=== PATIENT | male | born 1965 | race Caucasian/White ===

== ENCOUNTER 2022-04-29 07:12 | Emergency (ER) | payer SELFPAY ==
--- NOTE | ~2022-04-29 | XR_ITS ---
EXAMINATION: XR chest 2V DATE: 04/29/2022 07:39 INDICATION: Midline chest pain. TECHNIQUE: Frontal and lateral views of the chest were obtained. COMPARISON: None. 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 No pleural effusion or pneumothorax. The heart size is normal. IMPRESSION: 1. No acute cardiopulmonary disease. Reviewed, dictated and finalized at location A. [employer]
--- NOTE | 2022-04-29 07:15 | ECG_ITS ---
Measurements Intervals [place] Rate: 90 P: 51 NC: 136 QRS: 28 QRSD: 94 T: 53 QT: 343 QTc: 420 Interpretive Statements SINUS RHYTHM DELAYED PRECORDIAL R/S TRANSITION BASELINE ARTIFACT- I, AVL BORDERLINE ECG NO PREVIOUS ECG AVAILABLE FOR COMPARISON Electronically Signed On 04-29-2022 7:50:10 PROTOZOOLOGIST by Michele West D.O.
[2022-04-29 07:17] VITALS: BP 171/93; PULSE 95; RESP 16; TEMP 36.6; O2SAT 100
--- NOTE | 2022-04-29 07:43 | ED.GENADULT ---
HPI - General Adult General Chief complaint: Recheck/Abnormal Lab/Rx Stated complaint: high bp Time Seen by Provider: 04/29/22 07:14 History of Present Illness HPI narrative: 56-year-old male with no prior history of hypertension presenting to the emergency department for evaluation of intermittent chest pain and high blood pressure. Patient states that yesterday he went to check his blood pressure at a local drugstore and it was found to be elevated. Patient states he did have a short episode of chest pain yesterday without resolved now. Patient denies any current chest pain. Patient has no prior history of DC. Related Data Allergies Allergy/AdvReac Type Severity Reaction Status Date / Time No Known Allergies Allergy Verified 04/29/22 08:25 Review of Systems Review of Systems: CONSTITUTIONAL: Denies fever, chills, or sweats. EYES: Denies visual changes, redness, or discharge. ENT: Denies rhinorrhea, congestion, sore throat, or otalgia. CARDIOVASCULAR: See HPI RESPIRATORY: Denies cough or dyspnea. GASTROINTESTINAL: Denies abdominal pain, nausea, vomiting, or diarrhea. GENITOURINARY: Denies dysuria or hematuria. SKIN: Denies rash or itching. MUSCULOSKELETAL: Denies back pain, joint pain, or myalgia. NEUROLOGIC: Denies headache, numbness, or weakness. Exam Narrative: APPEARANCE: Well appearing, no pain, no distress, well-nourished. HEAD: normocephalic, atraumatic. EYES: PERRLA/EOMI, conjunctivae clear. NOSE: Normal no drainage NECK: Supple. No adenopathy, no masses. RESPIRATORY: Airway patent, respirations nonlabored. Clear to auscultation bilaterally, no rales, rhonchi, wheezing. CARDIOVASCULAR: Regular rate and rhythm without murmurs rubs or gallops. ABDOMINAL: Soft, nontender, nondistended, normal bowel sounds MUSCULOSKELETAL: Moves all extremities. Strength/ROM intact, No edema, No calf tenderness. NEURO: Alert. Cranial nerves II through XII intact. Grossly intact SKIN: Warm, dry. Normal Color Course Course Emergency Course: Case was discussed with Dr. Cagle on-call for medicine. He was comfortable seeing the patient as outpatient. Patient's blood pressure normalized while he was in the ED. No blood pressure medications were started in the ED. Vital Signs Vital signs: Vital Signs Temperature 97.8 F 04/29/22 07:17 Pulse Rate 95 04/29/22 07:17 Respiratory Rate 16 04/29/22 07:17 Blood Pressure 171/93 H 04/29/22 07:17 Pulse Oximetry 100 04/29/22 07:17 Oxygen Delivery Room Air 04/29/22 07:17 Temperature 97.8 F 04/29/22 07:17 Pulse Rate 72 04/29/22 09:58 Respiratory Rate 18 04/29/22 09:58 Blood Pressure 130/86 04/29/22 09:58 Pulse Oximetry 96 04/29/22 09:58 Oxygen Delivery Room Air 04/29/22 07:17 Medical Decision Making Vital Signs Vital Signs: Vital Signs Temperature 97.8 F 04/29/22 07:17 Pulse Rate 95 04/29/22 07:17 Respiratory Rate 16 04/29/22 07:17 Blood Pressure 171/93 H 04/29/22 07:17 Pulse Oximetry 100 04/29/22 07:17 Oxygen Delivery Room Air 04/29/22 07:17 Temperature 97.8 F 04/29/22 07:17 Pulse Rate 72 04/29/22 09:58 Respiratory Rate 18 04/29/22 09:58 Blood Pressure 130/86 04/29/22 09:58 Pulse Oximetry 96 04/29/22 09:58 Oxygen Delivery Room Air 04/29/22 07:17 Lab Data Lab results reviewed: Yes I reviewed the patient's lab results. Result diagrams: 04/29/22 08:08 04/29/22 08:08 Labs: Lab Results 04/29/22 04/29/22 04/29/22 Range/Units 08:08 08:08 08:51 WBC 7.9 (4.5-10.0) K/mm3 RBC 5.49 (4.6-6.20) M/mm3 Hgb 17.4 (14.0-18.0) g/dL Hct 51.9 (42.0-52.0) % MCV 94.5 (80-100) fl MCH 31.7 (26-34) pg MCHC 33.5 (32-36) g/dl RDW 13.5 (11.5-14.5) % Plt Count 205 (150-375) k/mm3 MPV 9.3 (7.4-10.4) fl Immature Gran % (Auto) 0.3 (0-0.5) % Neut % (Auto) 76.5 H (45.5-73.1) % Lymph % (Auto) 13.3 L (18.3-44.2) % [place] %
[2022-04-29 08:17] LABS: Basophils Percent Auto 0.5 % (0.2-1.2); Eosinophils Absolute Auto 0.1 K/mm3 (0-0.3); Eosinophils Percent Auto 1.8 % (0-4.4); Hematocrit 51.9 % (42.0-52.0); Hemoglobin 17.4 g/dL (14.0-18.0); Immature Granulocyte Absolute 0.02 K/mm3 (0.00-0.031); Immature Granulocyte Percent A 0.3 % (0-0.5); Lymphocytes Absolute Auto 1.05 K/mm3 (0.9-3.2); Lymphocytes Percent Auto 13.3 % (18.3-44.2); Mean Corpuscular HGB Conc 33.5 g/dl (32-36); Mean Corpuscular Hemoglobin 31.7 pg (26-34); Mean Corpuscular Volume 94.5 fl (80-100); Mean Platelet Volume 9.3 fl (7.4-10.4); Monocytes Absolute Auto 0.6 K/mm3 (0.1-0.6); Monocytes Percent Auto 7.6 % (2.6-8.5); Neutrophils Absolute Auto 6.1 K/mm3 (1.3-6.7); Neutrophils Percent Auto 76.5 % (45.5-73.1); Platelet Count Result 205 k/mm3 (150-375); Red Blood Count 5.49 M/mm3 (4.6-6.20); Red Cell Distribution Width 13.5 % (11.5-14.5); White Blood Count 7.9 K/mm3 (4.5-10.0)
[2022-04-29] MEDS: ASPIRIN 81 MG CHEWABLE TABLET 324 MG PO (08:23)
--- NOTE | 2022-04-29 08:25 | PC.NURSE ---
Nitroglycerin not administered because patient's blood pressure is 131/87. Dr. Arreola aware and advised no nitroglycerin be given at this time.
[2022-04-29 08:29] VITALS: PULSE 79; RESP 14; O2SAT 96
[2022-04-29 08:30] VITALS: PULSE 78; RESP 17; O2SAT 96
[2022-04-29 08:30] LABS: Alanine Aminotransferase 51 U/L (6-50); Albumin Level 4.7 g/dL (3.5-5.1); Alkaline Phosphatase 49 U/L (38-126); Anion Gap 11 mmol/L (8-16); Aspartate Amino Transferase 40 U/L (17-59); Bilirubin,Total 0.5 mg/dL (0.2-1.3); Blood Urea Nitrogen 16 mg/dL (9-20); Calcium 9.3 mg/dL (8.4-10.2); Carbon Dioxide 27 mmol/L (22-30); Chloride 105 mmol/L (98-107); Estimated CRCL calculation 70 ml/min; Estimated Glomerular Filt Rate > 60; Glucose 102 mg/dL (65-110); Potassium 3.8 mmol/L (3.4-5.0); Sodium 143 mmol/L (137-145)
[2022-04-29 08:31] VITALS: BP 134/87; PULSE 81; RESP 20; O2SAT 95
[2022-04-29 08:42] LABS: Troponin I < 0.012 ng/mL (0.000-0.034)
[2022-04-29 09:00] LABS: Appearance Urine Clear (Clear); Bilirubin Urine Negative (Negative); Blood Urine Negative (Negative); Color Urine Yellow (Yellow); Glucose Urine UA Negative (Negative); Ketones Urine Negative (Negative); Leukocyte Esterase Ur Negative LEU/UL (Negative); Nitrate Urine Negative (Negative); Protein Urine Negative (Negative); Urobilinogen Urine 0.2 mg/dL (<2.0)
[2022-04-29 09:45] LABS: Add Urine Microscopic? NO
[2022-04-29 09:58] VITALS: BP 130/86; PULSE 72; RESP 18; O2SAT 96
== END 2022-04-29 10:00 | disposition home or self-care (01) ==
PROVIDERS: Emergency Provider Emergency Medicine
DX: I10 Essential (primary) hypertension (principal)
CPT/HCPCS: 36415; 71046; 80053; 81003; 84484; 85025; 93005; 99284; A9270